=== PATIENT | male | born 1985 | race Caucasian/White ===

== ENCOUNTER 2023-01-21 12:20 | Observation (INO) | payer OTHER ==
[~2023-01-21] VITALS: Ht 180.3 cm; Wt 128.4 kg
--- NOTE | 2023-01-21 12:20 | NUR ---
ARRIVAL PT BROUGHT BY W/C TO ED2 WITH C/O CP THAT STARTED APPROX. 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 CP IS STERNAL WITH NO RADIATION. PT RATES PAIN 7/10, DESCRIBED SQUEEZING PRESSURE. PT DENIES TAKING ANY MEDICATION AT THIS TIME. PT ALSO C/O SOB. PTS CP STARTED AT REST WHILE IN BED. VITALS OBTAINED. NOTIFIED OF PTS ARRIVAL.
[2023-01-21] MEDS ORDERED: ASPIRIN PO STA (12:31)
[2023-01-21 12:32] VITALS: BP 160/111; PULSE 72; RESP 22; TEMP 98.4; O2SAT 99
--- NOTE | 2023-01-21 12:34 | PCM.EKG ---
[facility] Test Date: 2023-01-21 Test Time: 12:12:59 Pat Name: SHEA SCHULZ Department: ER Room: 336 Gender: M Accreditation Manager: HUSSAIN : 1985 Requested By: KELLEN WEINER Order Number: [id number] Reading MD: Kellen WEINER Measurements Intervals [place] Rate: 71 P: -3 [place]: 140 QRS: 11 QRSD: 89 T: 41 QT: 360 QTc: 392 Interpretive Statements Sinus rhythm Consider left ventricular hypertrophy Baseline wander in lead(s) V5,V6 No previous ECG available for comparison Electronically Signed On 01-23-2023 08:41:02 CDT by Kellen WEINER Please click the below link to view image of tracing.
[2023-01-21] MEDS ORDERED: ASPIRIN ONE (12:35)
--- NOTE | 2023-01-21 12:38 | ER.PDOC ---
General Chief Complaint: Chest Pain-Cardiac Nature Stated Complaint: CP,SOB Time seen by MD: 12:36 Source: patient Exam Limitations: no limitations History of Present Illness Initial Comments Chest pain and shortness of breath x2 hours. No nausea or vomiting. No diaphoresis. Timing/Duration: 1-3 hours Severity/Quality: moderate Radiation: no radiation Prior CP/Workup: No Prior Chest Pain Nitro Today/Relief: 0.4 mg x 1 Aspirin Today: 325 mg x 1 Associated Symptoms: shortness of breath Past Medical History Medical History: no pertinent history Surgical History: cholecystectomy Family History Significant Family History: no pertinent family hx Social History Smoking: non-smoker Alcohol Use: sober Drug Use: none Constitutional: no symptoms reported EENTM: no symptoms reported Respiratory: no symptoms reported Cardiovascular: see HPI Gastrointestinal: no symptoms reported All Other Systems: Reviewed and Negative Physical Exam General Appearance: No Apparent Distress, WD/WN HEENT: PERRL/EOMI, Normal ENT Inspection, TMs Normal, Pharynx Normal Neck: Non-Tender, Full Range of Motion, Supple, Normal Inspection Respiratory: chest non-tender, lungs clear, normal breath sounds, no respiratory distress, no accessory muscle use Cardiovascular: Normal Peripheral Pulses, Regular Rate, Rhythm, No Edema, No Gallop, No JVD, No Murmur Gastrointestinal: Normal Bowel Sounds, No Organomegaly, No Pulsatile Mass, Non Tender, Soft Extremities: Normal Range of Motion, Non-Tender, Normal Inspection, No Pedal Edema, No Calf Tenderness, Normal Capillary Refill Neurologic/Psychiatric: manager discovery II-XII NML as Tested, No Motor/Sensory Deficits, Alert, Normal Mood/Affect, Oriented x 3 Skin: Normal Color, Warm/Dry Results/Orders Results/Orders Orders - KELLEN WEINER MD EKG (01/21/23 12:31) Xr Chest 1v (01/21/23 12:31) Cbc With Auto Diff (01/21/23 12:31) Comprehensive Metabolic Panel (01/21/23 12:31) Creatine Kinase (01/21/23 12:31) Creatine Kinase Mb (01/21/23 12:31) Probnp B-Type Retirement Officer (01/21/23 12:31) PT (01/21/23 12:31) Partial Thromboplastin Time. (01/21/23 12:31) D-Dimer (01/21/23 12:31) Troponin I High Sensitivity (01/21/23 12:31) Nitroglycerin (Nitrostat) (01/21/23 13:00) Aspirin (Aspirin) (01/21/23 12:31) Aspirin (Aspirin) (01/21/23 12:35) Vital Signs Date Time Temp Pulse Resp B/P (MAP) Pulse Ox O2 Delivery O2 Flow Rate FiO2 01/21/23 12:32 98.4 72 22 99 Progress Progress Chest x-ray: Normal CBC normal, D-dimer normal, cardiac enzymes normal, BUN 35, rest of chemistries unremarkable. Patient received nitroglycerin sublingual x2 and morphine. His pain significantly improved to mild pain at this time. I reviewed his previous records and he needs to be admitted for VISH panel. EKG/XRAY/CT/US EKG: NSR EKG Comments: HR 71, normal P axis ER DEPART Departure Time of Disposition: 14:04 Disposition: 09 ADMITTED INPATIENT Impression: Primary Impression: Chest pain Condition: Improved Referrals: PCP,UNKNOWN (PCP) PRIMARY CARE PROVIDER Comments Admitted to Dr. Quick Duration or Time Spent with Pa: 60 min Problem Qualifiers Primary Impression: Chest pain Chest pain type: unspecified Qualified Codes: R07.9 - Chest pain, unspecified KELLEN WEINER MD Jan 21, 2023 12:38
[2023-01-21] MEDS: NITROSTAT SL PRN ×4 (12:42→21:16)
--- NOTE | 2023-01-21 12:52 | DIREP ---
PROCEDURE:CHEST 1 VIEW COMPARISON:None. INDICATIONS:Chest pain FINDINGS: LUNGS/PLEURA:No significant pulmonary parenchymal abnormalities. No effusions. No pneumothorax. VASCULATURE:Normal. Unremarkable pulmonary vasculature. CARDIAC:Normal. No cardiac silhouette abnormality or cardiomegaly. MEDIASTINUM:Normal. No visible mass or adenopathy. BONES:Normal. No fracture or visible bony lesion. OTHER:Negative. CONCLUSION:Normal examination. Dictated by: Javid Santos M.D. on 01/21/2023 at 12:50 PM
[2023-01-21 12:58] LABS: BASOPHIL % 0.5 % (0.0-0.2); EOSINOPHIL # 0.2 10^3/uL (0.0-0.2); EOSINOPHIL % 3.1 % (0.0-5.0); LYMPHOCYTES # 2.92 10^3/uL1 (1.0-4.8); MEAN CORP HGB 29.2 pg (26-34); MONOCYTES # 0.6 10^3/uL (0.3-0.8); MONOCYTES % 8.5 % (5.0-12.0); NEUTROPHIL # 3.7 10^3/uL (1.8-7.7); NEUTROPHILS % 48.8 % (41.0-85.0); RED CELL DISTRIBUTION WIDTH 13.3 % (11.5-14.5)
[2023-01-21] MEDS ORDERED: MORPHINE SULFATE IV STA (13:06)
[2023-01-21] MEDS ORDERED: MORPHINE SULFATE ONE (13:11)
[2023-01-21 13:40] VITALS: BP 141/87; PULSE 64; RESP 22; TEMP 98.4; O2SAT 97
[2023-01-21 13:50] LABS: CARBON DIOXIDE 23.4 mmol/L (20.0-32)
[2023-01-21 15:04] VITALS: BP 164/85; PULSE 61; RESP 22; TEMP 98.4; O2SAT 94
[2023-01-21 15:13] VITALS: BP 144/88; PULSE 57; RESP 20; TEMP 97.3; O2SAT 96
[2023-01-21] MEDS ORDERED: DULO60CA55 PO (16:09)
[2023-01-21] MEDS ORDERED: TEST200V3 IM (16:09)
[2023-01-21] MEDS ORDERED: METO-237 PO (16:09)
[2023-01-21] MEDS ORDERED: GABA600T7 PO (16:09)
[2023-01-21] MEDS ORDERED: OMEP20CA19 PO (16:09)
[2023-01-21] MEDS ORDERED: GABA100C7 PO (16:09)
[2023-01-21] MEDS ORDERED: TRAZ150T57 PO (16:09)
[2023-01-21] MEDS ORDERED: METO25TA4 PO (16:09)
--- NOTE | 2023-01-21 16:12 | PCM.HP ---
History of Present Illness Reason for Visit: Chest pain History of Present Illness 37-year-old male with history of hypertension, pots disease, anxiety, depression, obesity, prediabetes, among others Presented emergency room with chest pain..Started 2 hours prior to arrival.. No nausea or vomiting. No diaphoresis. Work-up in the emergency room including initial troponin negative, initial EKG no acute finding. Given patient presentation and risk factors patient is being admitted to hospital for further management and to rule out acute coronary syndrome. Family history positive for coronary artery disease Past Medical History Cardiac: HTN, Other (Pots disease) Psychiatric: Anxiety, Depression Past Surgical History: No pertinent hx Past Social History Smoke: No Alcohol: none Drugs: None Review of Systems Respiratory: Shortness of breath Cardiovascular: Chest Pain Other Review of other 14 systems negative except what is mentioned above Allergies: Coded Allergies: No Known Drug Allergies (Verified Allergy, Unknown, 01/21/23) Scheduled Aspirin (Aspirin), 81 MG PO DAILY Duloxetine Hcl (Cymbalta), 90 MG PO DAILY Gabapentin (Gabapentin), 600 MG PO DAILY Testosterone Cypionate (Testosterone Cypionate), 200 MG IM bi weekly, (Reported) Trazodone Hcl (Trazodone Hcl), 150 MG PO HS [Metoprolol Succinate], 50 MG PO DAILY VTE VTE Risk Total Score: 4 VTE Risk Score VTE Risk: Score 0-1 = Low Risk (Aggressive mobilization; early ambulation; no VTE prophylaxis required) Score 2: Moderate Risk (Intermittent/Pneumatic Compression Device OR Lovenox/Heparin/Coumadin) Score 3-4: High Risk (Intermittent/Pneumatic Compression Device AND Lovenox/Heparin/Coumadin) Score > or =5: Highest Risk (Intermittent/Pneumatic Compression Device AND Lovenox/Heparin/Coumadin) VTE VTE Present on Admission: No Currently receiving anticoagul: No VTE Risk Total Score: 4 Exam Vital Signs Vital Signs Date Time Temp Pulse Resp B/P (MAP) Pulse Ox O2 Delivery O2 Flow Rate FiO2 01/21/23 15:35 Room Air 0.00 01/21/23 15:13 97.3 57 20 144/88 (106) 96 21 General Appearance: Alert, Oriented X3, Cooperative, mild distress, Other (Obese) HEENT: Atraumatic, PERRLA Respiratory: Clear to auscultation, Normal air movement Cardiovascular: Regular rate, Normal S1, Normal S2 Abdominal: Soft, No tenderness Extremities: No clubbing, No cyanosis Skin: No lesions Neuro: Normal speech, Normal tone Psych/Mental Status: Mental status NL, Mood NL Assessment/Plan Assessment/Plan Assessment/Plan 37-year-old male with history of hypertension, pots disease, anxiety, depression, obesity, prediabetes, among others Presented emergency room with chest pain..Started 2 hours prior to arrival.. No nausea or vomiting. No diaphoresis. Work-up in the emergency room including initial troponin negative, initial EKG no acute finding. Given patient presentation and risk factors patient is being admitted to hospital for further management and to rule out acute coronary syndrome. Plan Admit Telemetry monitoring Aspirin Trend troponin Reconcile home meds DVT prophylaxis as appropriate Expect length of stay 1 midnight if patient stable and further work-up negative Time spent examining the patient, reviewing labs, obtaining history, home medications, images, discussing the case with emergency room physician, patient, family, RN, documentation and placing orders more than 75Minutes Problems: (1) Chest pain Status: Acute ICD Code: R07.9 - Chest pain, unspecified SNOMED: 15496715 (2) Obesity ICD Code: E66.9 - Obesity, unspecified SNOMED: 474883082, 055838399 (3) Anxiety ICD Code: F41.9 - Anxiety disorder, unspecified SNOMED: 55834119 (4) Prediabetes ICD Code: R73.03 - Prediabetes SNOMED: 680920271 (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
[2023-01-21] MEDS ORDERED: D5W 1000ML 1,000 ML IV PRN (16:30)
[2023-01-21] MEDS ORDERED: NITROSTAT SL PRN (16:30)
[2023-01-21] MEDS ORDERED: DEXTROSE 50%-WATER SYRINGE IV PRN (16:30)
[2023-01-21] MEDS ORDERED: NORCO 7.5MG PO PRN (16:30)
[2023-01-21] MEDS ORDERED: TRAZODONE HCL PO PRN (17:00)
[2023-01-21] MEDS: HUMALOG SQ SCH ×2 (17:30→21:00)
[2023-01-21 20:23] VITALS: BP 142/96; PULSE 67; RESP 20; TEMP 97.2; O2SAT 97
[2023-01-21] MEDS ORDERED: TRAZODONE HCL PO SCH (21:00)
[2023-01-21] MEDS: TOPROL XL PO SCH (21:02)
[2023-01-21] MEDS: NEURONTIN PO SCH (21:13)
[2023-01-22 00:48] VITALS: BP 107/62; PULSE 94; RESP 18; TEMP 97.2; O2SAT 95
[2023-01-22 04:00] VITALS: BP 104/73; PULSE 60; RESP 18; TEMP 97.6; O2SAT 92
[2023-01-22 06:19] LABS: BASOPHIL % 0.4 % (0.0-0.2); EOSINOPHIL # 0.3 10^3/uL (0.0-0.2); EOSINOPHIL % 4.8 % (0.0-5.0); LYMPHOCYTES # 2.85 10^3/uL1 (1.0-4.8); LYMPHOCYTES % 41.8 % (24.0-44.0); MONOCYTES # 0.7 10^3/uL (0.3-0.8); MONOCYTES % 10.7 % (5.0-12.0); NEUTROPHIL # 2.9 10^3/uL (1.8-7.7); NEUTROPHILS % 42.2 % (41.0-85.0); PLATELET COUNT 176 10^3/uL (150-400); RED CELL DISTRIBUTION WIDTH 13.3 % (11.5-14.5)
[2023-01-22 06:26] LABS: CARBON DIOXIDE 25.8 mmol/L (20.0-32)
[2023-01-22 07:15] VITALS: BP 113/74; PULSE 63; RESP 19; TEMP 98.8; O2SAT 90
[2023-01-22] MEDS: HUMALOG SQ SCH (07:30)
[2023-01-22] MEDS: NEURONTIN PO SCH (08:41)
[2023-01-22] MEDS: TOPROL XL PO SCH (08:42)
[2023-01-22] MEDS ORDERED: TOPROL-XL PO SCH (09:00)
[2023-01-22] MEDS ORDERED: CYMBALTA PO SCH (09:00)
[2023-01-22] MEDS ORDERED: NEURONTIN PO SCH (09:00)
[2023-01-22] MEDS ORDERED: PROTONIX PO SCH (09:00)
[2023-01-22] MEDS ORDERED: ASPIRIN PO SCH (09:00)
[2023-01-22] MEDS ORDERED: TRAZ-163 PO (09:40)
[2023-01-22] MEDS ORDERED: ASPI-667 PO (09:40)
[2023-01-22] MEDS ORDERED: Metoprolol Succinate PO (09:40)
[2023-01-22] MEDS ORDERED: GABA600T7 PO (09:40)
[2023-01-22] MEDS ORDERED: DULO30CA2 PO (09:40)
[2023-01-22 11:22] VITALS: BP 136/87; PULSE 68; RESP 18; TEMP 97.9; O2SAT 94
--- NOTE | 2023-01-22 11:52 | PRM.DC ---
Discharge Summary Reason for Visit: Chest pain Hospital Course 37-year-old male with history of hypertension, pots disease, anxiety, depression, obesity, prediabetes, among others Presented emergency room with chest pain..Started 2 hours prior to arrival.. No nausea or vomiting. No diaphoresis. Work-up in the emergency room including initial troponin negative, initial EKG no acute finding. Given patient presentation and risk factors patient is being admitted to hospital for further management and to rule out acute coronary syndrome. Today patient is feeling better. Denies chest pain. Ambulating. Blood pressure better controlled. Troponins negative. Hemoglobin A1c is 7.1. I explained to the patient and . Patient need to be placed on low-carb diet, exercise, losing weight will help. Otherwise patient will need to be started on diabetic medications. Patient prefers diet and exercise. He said that he will follow with primary care physician regarding diabetic management. Patient will be discharged home. 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 I advised patient to follow-up with his inspection machine tender as early as possible for further cardiac work-up and possible stress test. Medication reconciliation completed. Patient will be discharged home. Exam/Vitals Vital Signs Date Time Temp Pulse Resp B/P (MAP) Pulse Ox O2 Delivery O2 Flow Rate FiO2 01/22/23 11:22 97.9 68 18 136/87 (103) 94 Room Air* 0 21 General: Alert, Oriented X3, No acute distress HEENT: Atraumatic, PERRLA Neck: Supple, No JVD Lungs: Clear to auscultation, Normal air movement Heart: Regular rate, Normal S1, Normal S2 Abdomen: Normal bowel sounds, Soft, No tenderness Extremities: No clubbing, No cyanosis Skin: No significant lesion Neuro: Normal speech, Normal tone Psych/Mental Status: Mental status NL, Mood NL Scheduled Aspirin (Aspirin), 81 MG PO DAILY Duloxetine Hcl (Cymbalta), 90 MG PO DAILY Gabapentin (Gabapentin), 600 MG PO DAILY Testosterone Cypionate (Testosterone Cypionate), 200 MG IM bi weekly, (Reported) Trazodone Hcl (Trazodone Hcl), 150 MG PO HS [Metoprolol Succinate], 50 MG PO DAILY Sepsis Evaluation @ Discharge 01/22/23 08:30 Plan Problems: (1) Chest pain Status: Resolved ICD Code: R07.9 - Chest pain, unspecified SNOMED: 87693506 (2) Hypertension ICD Code: I10 - Essential (primary) hypertension SNOMED: 27911229 (3) Obesity ICD Code: E66.9 - Obesity, unspecified SNOMED: 598314264, 160546810 (4) Prediabetes ICD Code: R73.03 - Prediabetes SNOMED: 246587987 (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 No nausea or vomiting. No diaphoresis. Work-up in the emergency room including initial troponin negative, initial EKG no acute finding. Given patient presentation and risk factors patient is being admitted to hospital for further management and to rule out acute coronary syndrome. Today patient is feeling better. Denies chest pain. Ambulating. Blood pres sure better controlled. Troponins negative. Hemoglobin A1c is 7.1. I explained to the patient and . Patient need to be placed on low-carb diet, exercise, losing weight will help. Otherwise patient will need to be started on diabetic medications. Patient prefers diet and exercise. He said that he will follow with primary care physician regarding diabetic management. Patient will be discharged home. 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 I advised patient to follow-up with his inspection machine tender as early as possible for further cardiac work-up and possible stress test. Medication reconciliation completed. Patient will be discharged home. Problem Qualifiers (1) Chest pain: Chest pain type: unspecified Qualified Codes: R07.9 - Chest pain, unspecified SHANI LINDSAY MD Jan 22, 2023 11:52
--- NOTE | 2023-01-22 11:56 | NUR ---
DISCHARGE EDUCATION SESSION HELD WITH PT AND SPOUSE. PT DENIES PAIN AND NO APPARENT ACUTE DISTRESS NOTED. FOLLOW UP INSTRUCTIONS AND NEW/CURRENT MEDICATION EDUCATION ADDRESSED WITH PT AND SPOUSE. BOTH VERBALIZED UNDERSTANDING. PT BELONGINGS DISCHARGED WITH PT. PT LEFT UNIT AMBULATORY. LEFT IN PERSONAL AUTO WITH SPOUSE. RELINQUISHED CARE.
[2023-01-22 12:07] VITALS: BP 136/87; PULSE 68; RESP 18; TEMP 97.9; O2SAT 94
== END 2023-01-22 11:56 | disposition home or self-care (01) ==
LOC: ER 12:20 → MS 14:05
PROVIDERS: ADMIT Internal Medicine; ATTEND Internal Medicine
DX: R07.89 Other chest pain (principal); A18.01 Tuberculosis of spine; R06.02 Shortness of breath; I10 Essential (primary) hypertension; F41.9 Anxiety disorder, unspecified; E66.9 Obesity, unspecified; G90.A Postural orthostatic tachycardia syndrome [POTS]; R73.03 Prediabetes; Z90.89 Acquired absence of other organs; Z68.39 Body mass index [BMI] 39.0-39.9, adult; Z79.899 Other long term (current) drug therapy
CPT/HCPCS: 96374; 99285; 71045; 80053; 85025 ×2; 82948 ×2; 36415 ×2; 85379; 84484 ×4; 82553; 83880; 82550; 85610; 85730; 93005; 80048; 83036; G0378 ×22; J8499